=== PATIENT | female | born 1995 | race Caucasian/White ===

== ENCOUNTER 2023-09-17 09:15 | Outpatient (CLI) | payer OTHER | END 2023-09-17 09:38 | disposition home or self-care (01) | LOC: RX STUDY 09:15 | PROVIDERS: ATTEND Obstetrics & Gynecology | DX: N97.9 Female infertility, unspecified (principal) ==

== ENCOUNTER → 2024-10-22 | Emergency (ER) | payer OTHER ==
[~2024-10-22] VITALS: Ht 162.6 cm; Wt 119.3 kg
[~2024-10-22] MED LIST: KETOROLAC TROMETHAMINE 30 MG VIAL ONE; ONDANSETRON HCL 2 MG/ML VIAL ONE; PRENATAL 19 CH1 EAC1
[2024-10-22 06:19] VITALS: BP 118/77; O2SAT 100
[2024-10-22 07:21] LABS: HEMATOCRIT 41.4 % (36.0-45.00); HEMOGLOBIN 13.7 g/dL (12.0-15.00); MEAN CELL VOLUME 86.2 fL (80.00-100.00); MEAN CORPUSCULAR HEMOGLOBIN 28.5 pg (27.00-32.0); PLATELET COUNT 231 K/uL (150-450); RED CELL DISTRIBUTION WIDTH 14.8 % (11.5-14.5)
[2024-10-22 07:47] LABS: INR 0.98; PARTIAL THROMBOPLASTIN TIME 31.2 SECONDS (22.0-34.0); PROTHROMBIN TIME 10.7 SECONDS (9.0-11.5)
[2024-10-22 08:08] LABS: PH,URINE 5.5 (5.0-8.0); URINE APPEARANCE Cloudy; URINE BILIRRUBIN Negative (NEGATIVE); URINE BLOOD Large; URINE COLOR Orange; URINE GLUCOSE Negative (NEGATIVE); URINE KETONE Negative (NEGATIVE); URINE LEUKOCYTE Trace; URINE NITRATE Negative; URINE PROTEIN 30 (NEGATIVE); URINE UROBILINOGEN 0.2 E.U./dl
[2024-10-22 08:10] LABS: URINE BACTERIA 149.3 uL (0.0-1933); URINE EPITHELIAL CELLS 83.5 uL (0.0-38.8); URINE RBC 102.5 uL (0.0-20.8); URINE WBC 14.7 uL (0.0-23.2)
[2024-10-22 09:04] LABS: CALCIUM 9.3 mg/dL (8.5-10.1); CREATININE SERUM 0.7 mg/dL (0.55-1.02); GFR 100.38; POTASSIUM 3.95 mEq/L (3.5-5.1)
== END | disposition home or self-care (01) ==
LOC: ER 06:11
PROVIDERS: General Practice
DX: O20.9 Hemorrhage in early pregnancy, unspecified (principal)

== ENCOUNTER 2024-10-23 14:59 | Emergency (ER) | payer OTHER ==
[~2024-10-23] VITALS: Ht 162.6 cm; Wt 119.3 kg
[~2024-10-23 14:59] MED LIST changes: -KETOROLAC TROMETHAMINE 30 MG VIAL ONE; -ONDANSETRON HCL 2 MG/ML VIAL ONE
[2024-10-23] MEDS ORDERED: ONDANSETRON HCL 2 MG/ML VIAL IV ONE (16:30)
[2024-10-23] MEDS ORDERED: KETOROLAC TROMETHAMINE 15 MG VIAL IV ONE (16:30)
[2024-10-23] MEDS ORDERED: 0.9 % SODIUM CHLORIDE 1,000 ML IV SCH (16:45)
[2024-10-23 17:07] LABS: HEMATOCRIT 41.5 % (36.0-45.00); HEMOGLOBIN 13.6 g/dL (12.0-15.00); MEAN CELL VOLUME 86.4 fL (80.00-100.00); MEAN CORPUSCULAR HEMOGLOBIN 28.4 pg (27.00-32.0); MEAN CORPUSCULAR HGB CONC 32.9 g/dl (32.0-36.0); PLATELET COUNT 252 K/uL (150-450); RED CELL DISTRIBUTION WIDTH 14.9 % (11.5-14.5)
[2024-10-23] MEDS ORDERED: KETOROLAC TROMETHAMINE 30 MG VIAL IV ONE (19:30)
[2024-10-23] MEDS ORDERED: KETOROLAC TROMETHAMINE 30 MG VIAL ONE (19:38)
== END 2024-10-23 20:16 | disposition home or self-care (01) ==
LOC: ER 15:00
PROVIDERS: General Practice
DX: O20.9 Hemorrhage in early pregnancy, unspecified (principal); Z3A.08 8 weeks gestation of pregnancy; Z88.8 Allergy status to other drugs, medicaments and biological substances